=== PATIENT | female | born 1980 | race Caucasian/White ===

== ENCOUNTER 2016-04-06 13:28 | Emergency (ER) | payer MEDICAID ==
[~2016-04-06] VITALS: Ht 175.3 cm; Wt 58.1 kg
[~2016-04-06 13:28] MED LIST: ALPR0.5T7 PO; NOR10T PO; TOPI50TA53 PO
[2016-04-06 14:52] VITALS: BP 112/86
== END 2016-04-06 17:52 | disposition left against medical advice (07) ==
LOC: ER 13:28
DX: N63 Unspecified lump in breast (principal); Z53.21 Procedure and treatment not carried out due to patient leaving prior to being seen by health care provider

== ENCOUNTER 2016-04-06 19:11 | Emergency (ER) | payer MEDICAID ==
[~2016-04-06] VITALS: Ht 175.3 cm; Wt 58.1 kg
[2016-04-06 19:36] VITALS: BP 105/75
== END 2016-04-06 21:17 | disposition home or self-care (01) ==
LOC: ER 19:13
DX: J20.9 Acute bronchitis, unspecified (principal); Z76.0 Encounter for issue of repeat prescription; G89.29 Other chronic pain; M54.5 Low back pain; Z87.440 Personal history of urinary (tract) infections; Z88.6 Allergy status to analgesic agent; Z88.8 Allergy status to other drugs, medicaments and biological substances

== ENCOUNTER 2016-08-27 19:10 | Emergency (ER) | payer MEDICAID ==
[~2016-08-27] VITALS: Ht 172.7 cm; Wt 49.9 kg
[2016-08-27 20:14] LABS: Basophils # (auto) 0 uL; Basophils % (auto) 0.3 % (0.0-2.0); CONDITION Y; Eosinophils # (auto) 0.3 uL; Eosinophils % (auto) 3.2 % (0.0-7.0); Hematocrit 40.5 % (36.0-46.0); Hemoglobin 14.2 g/dL (12.2-16.2); Lymphocytes # (auto) 1.1 uL; Lymphocytes % (auto) 12.8 % (10.0-50.0); Mean Corpuscular Hemoglobin 32.7 pg (28.0-32.0); Mean Corpuscular Volume 93.2 fL (80.0-100.0); Mean Platelet Volume 7.1 fL (7.4-10.4); Monocytes # (auto) 0.4 uL; Neutrophils # (auto) 6.8 uL; Neutrophils % (auto) 78.7 % (37.0-80.0); Platelet Count (auto) 370 10^3/uL (140-450); Red Cell Distribution Width 13.5 % (11.6-16.0); White Blood Cell 8.6 10^3/uL (4.4-10.8)
[2016-08-27 21:09] LABS: Acetaminophen < 2.0 ug/mL (10-30)
[2016-08-27 21:15] LABS: Albumin 3.8 g/dL (3.4-5.0); Alkaline Phosphatase 97 U/L (45-117); Anion Gap 9 (5-15); Aspartate Aminotransferase 87 U/L (15-37); BUN/Creatinine Ratio 13.7; Bilirubin, Total 0.5 mg/dL (0.2-1.0); Blood Urea Nitrogen 10 mg/dL (7-18); Calcium 8.4 mg/dL (8.5-10.1); Carbon Dioxide 27 mmol/L (21-32); Chloride 105 mmol/L (98-107); GFR African American 116 mL/min; GFR Non-African American 96 mL/min; Glucose 107 mg/dL (74-106); Potassium 3.1 mmol/L (3.5-5.1); Sodium 141 mmol/L (136-145); Total Protein 6.7 g/dL (6.4-8.2)
[2016-08-27] MEDS ORDERED: POTASSIUM CHL 20MEQ/100ML 100 ML IV ONE (22:00)
[2016-08-27 22:52] LABS: Urine RBC None Seen /hpf (0 - 4)
[2016-08-27] MEDS ORDERED: SODIUM CHLORIDE 0.9% 1,000 ML IV ONE (23:00)
[2016-08-27 23:01] LABS: Urine Bilirubin Negative (Negative); Urine Blood Negative /uL (Negative); Urine Color Yellow (Yellow); Urine Glucose Normal (Normal); Urine Mucus FEW (None Seen); Urine Nitrite Negative (Negative); Urine Squamous Epithelial Cell FEW /hpf (<5)
[2016-08-27 23:09] LABS: Urine Ketone 2+ (Negative)
[2016-08-28] MEDS ORDERED: SODIUM CHLORIDE 0.9% 3,000 ML IV ONE (01:30)
[2016-08-28 02:37] VITALS: BP 106/71
== END 2016-08-28 02:57 | disposition home or self-care (01) ==
LOC: EDBD 19:10 → ER 19:16
DX: T65.91XA Toxic effect of unspecified substance, accidental (unintentional), initial encounter (principal); G89.29 Other chronic pain; M54.9 Dorsalgia, unspecified; Z90.49 Acquired absence of other specified parts of digestive tract; Z88.8 Allergy status to other drugs, medicaments and biological substances; F17.210 Nicotine dependence, cigarettes, uncomplicated; F12.10 Cannabis abuse, uncomplicated; F15.10 Other stimulant abuse, uncomplicated; Y92.89 Other specified places as the place of occurrence of the external cause
CPT/HCPCS: 36415; 80053; 80307; 80320; 80329; 81001; 84702; 85025; 94761; 96360; 96361; 99285; J3480; J7030

== ENCOUNTER 2017-07-01 11:53 | Emergency (ER) | payer MEDICAID ==
[~2017-07-01] VITALS: Ht 162.6 cm; Wt 63.5 kg
[2017-07-01 12:27] LABS: Urine Pregnacy Test Negative (Negative)
[2017-07-01 12:31] LABS: Urine Bacteria FEW /hpf (None Seen); Urine Blood Negative /uL (Negative); Urine Specific Gravity 1.004 (1.001-1.035); Urine WBC 4 /hpf (0 - 5)
[2017-07-01 12:48] LABS: Alcohol, Urine < 3.0 mg/dL (0-5); Amphetamine Screen, Urine POSITIVE (NEGATIVE); Barbiturate Scree,Urine NEGATIVE (NEGATIVE); Cannabinoid Screen, Urine NEGATIVE (NEGATIVE); Cocaine Screen, Urine NEGATIVE (NEGATIVE); Opiate Scree,Urine NEGATIVE (NEGATIVE); Phencyclidine Screen, Urine NEGATIVE (NEGATIVE)
[2017-07-01 13:07] LABS: Benzodiazephine Screen, Urine POSITIVE (NEGATIVE)
[2017-07-01 13:21] LABS: Basophils # (auto) 0.2 uL; Basophils % (auto) 2.2 % (0.0-2.0); Eosinophils # (auto) 0.4 uL; Eosinophils % (auto) 5.4 % (0.0-7.0); Hematocrit 37.8 % (36.0-46.0); Hemoglobin 13.3 g/dL (12.2-16.2); Lymphocytes # (auto) 1.2 uL; Lymphocytes % (auto) 16.4 % (10.0-50.0); Mean Corpuscular Hemoglobin 32.5 pg (28.0-32.0); Mean Corpuscular Hgb Conc. 35.2 g/dL (32.0-36.0); Mean Corpuscular Volume 92.4 fL (80.0-100.0); Monocytes # (auto) 0.8 uL; Monocytes % (auto) 10.5 % (0.0-12.0); Neutrophils # (auto) 4.9 uL; Neutrophils % (auto) 65.5 % (37.0-80.0); Nucleated Red Blood Cells % 0.1 %; Platelet Count (auto) 292 10^3/uL (140-450); Red Blood Cells 4.09 10^6/uL (4.0-5.20); Red Cell Distribution Width 13.5 % (11.8-14.3); White Blood Cell 7.4 10^3/uL (4.4-10.8)
[2017-07-01 13:40] LABS: Alanine Aminotransferase 380 U/L (13-56); Albumin 3.9 g/dL (3.4-5.0); Alkaline Phosphatase 186 U/L (45-117); Anion Gap 8 (5-15); Aspartate Aminotransferase 231 U/L (15-37); BUN/Creatinine Ratio 18.3; Bilirubin, Total 1.3 mg/dL (0.2-1.0); Blood Urea Nitrogen 13 mg/dL (7-18); Calcium 8.4 mg/dL (8.5-10.1); Carbon Dioxide 26 mmol/L (21-32); Chloride 105 mmol/L (98-107); GFR African American 119 mL/min; GFR Non-African American 98 mL/min; Glucose 74 mg/dL (74-106); Magnesium 2.5 mg/dL (1.6-2.6); Potassium 3.3 mmol/L (3.5-5.1); Sodium 139 mmol/L (136-145); Total Protein 6.9 g/dL (6.4-8.2)
[2017-07-01] MEDS ORDERED: cefTRIAXone 1GM/10ml IVPUSH 10 ML IV ONE (16:00)
[2017-07-01] MEDS ORDERED: POTASSIUM CHL 20 Meq TABLET PO ONE (17:15)
[2017-07-01 19:25] VITALS: BP 99/59
== END 2017-07-02 00:18 | disposition home or self-care (01) ==
LOC: EDBD 11:53 → ER 11:53
DX: R56.9 Unspecified convulsions (principal); E87.6 Hypokalemia; F15.10 Other stimulant abuse, uncomplicated; F17.210 Nicotine dependence, cigarettes, uncomplicated; N39.0 Urinary tract infection, site not specified; R74.8 Abnormal levels of other serum enzymes
CPT/HCPCS: 36415; 70450; 71045; 80053; 80307; 81001; 81025; 83735; 84484; 85025; 93005; 96374